=== PATIENT | female | born 1935 | race Two or more races ===

== ENCOUNTER 2017-11-17 10:15 | Outpatient (CLI) | payer MEDICARE, OTHER ==
[2017-11-17] MEDS ORDERED: IOHEXOL-350 100 ML VIAL IV ONE (11:07)
[2017-11-17] MEDS ORDERED: CT SWABBABLE VALVE TRANS SET 1 EA INFUS.SET MC ONE (11:07)
[2017-11-17] MEDS ORDERED: NITROGLYCERIN 0.4 MG/TAB BOTTLE ONE (11:11)
[2017-11-17 11:20] LABS: CALCIUM, SERUM 8.8 mg/dL (8.5-10.1); CARBON DIOXIDE 35 mmol/L (21-32); CHLORIDE 107 mmol/L (98-107); CREATININE 0.8 mg/dL (0.6-1.3); GLUCOSE 82 mg/dL (74-106); POTASSIUM 4.5 mmol/L (3.5-5.1); SODIUM SERUM 143 mmol/L (136-145); UREA NITROGEN, BLOOD 31 mg/dL (7-18)
== END 2017-11-17 23:59 | disposition home or self-care (01) ==
LOC: CT 10:15
PROVIDERS: ATTEND Internal Medicine Interventional Cardiology
DX: I25.10 Atherosclerotic heart disease of native coronary artery without angina pectoris (principal); I51.7 Cardiomegaly; M47.894 Other spondylosis, thoracic region; I10 Essential (primary) hypertension
CPT/HCPCS: 36415; 75574; 80048; Q9967

== ENCOUNTER 2020-05-09 10:43 | Outpatient (CLI) | payer MEDICARE, OTHER | END 2020-05-09 23:59 | disposition home or self-care (01) | LOC: CT 10:43 | PROVIDERS: ATTEND Internal Medicine Interventional Cardiology | DX: R06.02 Shortness of breath (principal); I25.10 Atherosclerotic heart disease of native coronary artery without angina pectoris; I70.0 Atherosclerosis of aorta; M47.819 Spondylosis without myelopathy or radiculopathy, site unspecified | CPT/HCPCS: 71250-TC ==